=== PATIENT | female | born 1985 | race Caucasian/White ===

== ENCOUNTER 2016-08-08 16:27 | Emergency (ER) | payer OTHER ==
--- NOTE | 2016-08-08 17:52 | ED ORDER SUMMARY ---
..... Patient: JOVANY BRIONES OrderSheet [facility] VisitID: [id number] [place] [address] 31y, F Registration Date/Time: 08/08/2016 ORDER SHEET Weight: 81.6 kg (stated) Allergies: None GENERAL ORDERS: Wet Prep (Cervix) (c) Urgent (17:10 08/08/2016 Carrie Wilkerson) ([facility] 17:30 [facility]) (17:46 Caden Smalls) MEDICATION ORDERS: IV FLUIDS: ORDER SHEET NOTES: [Electronically signed by Virgen Escalante P.A.-C (18:27 08/08/2016)] [Electronically signed by Dottie Stout R.N. (19:33 08/08/2016)] [Electronically locked/signed by Dottie Stout R.N. (19:33 08/08/2016)]
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
--- NOTE | 2016-08-08 17:52 | ED CLINICAL REPORT ---
Clinical Report - Physicians/Mid Levels [facility] [address] [place] [address] 08/08/2016 16:30 Patient: JOVANY BRIONES Time Seen: 16:37 Aug 08 2016. Arrived- By private vehicle. Historian- patient. HISTORY OF PRESENT ILLNESS Chief Complaint: VAGINAL PAIN. This started just prior to arrival and still present. The symptoms are described as mild. The patient has had pelvic pain. (Patient is status post vaginal delivery on 01 July, and has been breast bending C Alvarado, prior to delivery she had a rash in her vagina, was being treated for such. Patient is breast-feeding. Denies any new nipple discharge or fevers.). REVIEW OF SYSTEMS No cough or chest pain. All systems otherwise negative, except as recorded above. PAST HISTORY Additional Surgeries: Dvt. Factor V Leiden. Medications: Aspirin Oral (Tablet 81 mg) 1 tablet, daily. Allergies: None. ADDITIONAL NOTES The nursing notes have been reviewed. PHYSICAL EXAM Vital Signs: 08/08/2016 16:43 BP: 105/56. HR: 78. RR: 17. O2 saturation: 99%. Temp: 97.8 F. Appearance: Alert. HEENT: Normal external inspection. ENT: Pharynx normal. Neck: Neck supple. CVS: Heart sounds normal. Respiratory: No respiratory distress. Breath sounds normal. Chest nontender. Abdomen: Soft and nontender. Bowel sounds normal. No mass. No abdominal tenderness. The bowel sounds are not abnormal. : Speculum and bimanual exam performed. External inspection normal. Speculum exam normal. Vaginal discharge present. No vaginal bleeding. No herpes-like lesions. Bimanual exam normal. (rash surrounding vagina with no elevation, pink, no warmth, chaperoned exam with RUBENS HUIZAR, Karyol.). LABS, X-RAYS, AND EKG Laboratory Tests: Wet Prep: (GABBIE: 08/08/2016 17:07) ( MsgRcvd 08/08/2016 17:35) Final results SPECIMEN DESCRIPTION: C Test Result Flag Units (Reference) WET MOUNT CLUE CELLS:: FEW * EPITHELIAL CELLS: MODERATE -- SOURCE?: CERVIX WHITE BLOOD CELLS: MODERATE TRICHOMONAS:: NONE -- YEAST:: NONE . PROGRESS AND PROCEDURES Course of Care: He was signs of vaginosis, we'll treat with topical, as she is breast-feeding, in addition we'll treat with 5 day course of triamcinolone, external, explicit instructions on use of such, then to DC and to follow up outpatient if her symptoms persist, external ear does not appear candidal in nature. There are no signs of herpes concerning lesions or warts. Patient stable. Afebrile. No urinary symptoms. Patient is stable. Symptoms better. Patient/family counseled. Disposition: Discharged. CLINICAL IMPRESSION Vaginitis Irritative contact dermatitis. INSTRUCTIONS Warnings: Further evaluation is necessary. Prescription Medications: Metronidazole 0.75% Vaginal Gel: insert 1 full applicator intra-vaginally for 5 days. Dispense seventy (70) grams. No refills. Triamcinolone 0.025% cream: apply to affected areas three times daily as needed for itching, until symptoms improve. Dispense thirty (30) grams. No refills. Metronidazole 500 mg: Take 1 tablet orally every 12 hours for 7 days. No refill. Follow-up: Follow up with your doctor in four days. (Electronically signed by Virgen Escalante P.A.-C 08/08/2016 18:27)
--- NOTE | 2016-08-08 17:52 | ED CLINICAL REPORT ---
Clinical Report - Physicians/Mid Levels [facility] [address] [place] [address] 08/08/2016 16:30 Patient: JOVANY BRIONES Time Seen: 16:37 Aug 08 2016. Arrived- By private vehicle. Historian- patient. HISTORY OF PRESENT ILLNESS Chief Complaint: VAGINAL PAIN. This started just prior to arrival and still present. The symptoms are described as mild. The patient has had pelvic pain. (Patient is status post vaginal delivery on 01 July, and has been breast bending C Alvarado, prior to delivery she had a rash in her vagina, was being treated for such. Patient is breast-feeding. Denies any new nipple discharge or fevers.). REVIEW OF SYSTEMS No cough or chest pain. All systems otherwise negative, except as recorded above. PAST HISTORY Additional Surgeries: Dvt. Factor V Leiden. Medications: Aspirin Oral (Tablet 81 mg) 1 tablet, daily. Allergies: None. ADDITIONAL NOTES The nursing notes have been reviewed. PHYSICAL EXAM Vital Signs: 08/08/2016 16:43 BP: 105/56. HR: 78. RR: 17. O2 saturation: 99%. Temp: 97.8 F. Appearance: Alert. HEENT: Normal external inspection. ENT: Pharynx normal. Neck: Neck supple. CVS: Heart sounds normal. Respiratory: No respiratory distress. Breath sounds normal. Chest nontender. Abdomen: Soft and nontender. Bowel sounds normal. No mass. No abdominal tenderness. The bowel sounds are not abnormal. : Speculum and bimanual exam performed. External inspection normal. Speculum exam normal. Vaginal discharge present. No vaginal bleeding. No herpes-like lesions. Bimanual exam normal. (rash surrounding vagina with no elevation, pink, no warmth, chaperoned exam with RUBENS HUIZAR, Karyol.). LABS, X-RAYS, AND EKG Laboratory Tests: Wet Prep: (GABBIE: 08/08/2016 17:07) ( MsgRcvd 08/08/2016 17:35) Final results SPECIMEN DESCRIPTION: C Test Result Flag Units (Reference) WET MOUNT CLUE CELLS:: FEW * EPITHELIAL CELLS: MODERATE -- SOURCE?: CERVIX WHITE BLOOD CELLS: MODERATE TRICHOMONAS:: NONE -- YEAST:: NONE . PROGRESS AND PROCEDURES Course of Care: He was signs of vaginosis, we'll treat with topical, as she is breast-feeding, in addition we'll treat with 5 day course of triamcinolone, external, explicit instructions on use of such, then to DC and to follow up outpatient if her symptoms persist, external ear does not appear candidal in nature. There are no signs of herpes concerning lesions or warts. Patient stable. Afebrile. No urinary symptoms. Patient is stable. Symptoms better. Patient/family counseled. Disposition: Discharged. CLINICAL IMPRESSION Vaginitis Irritative contact dermatitis. INSTRUCTIONS Warnings: Further evaluation is necessary. Prescription Medications: Metronidazole 0.75% Vaginal Gel: insert 1 full applicator intra-vaginally for 5 days. Dispense seventy (70) grams. No refills. Triamcinolone 0.025% cream: apply to affected areas three times daily as needed for itching, until symptoms improve. Dispense thirty (30) grams. No refills. Metronidazole 500 mg: Take 1 tablet orally every 12 hours for 7 days. No refill. Follow-up: Follow up with your doctor in four days. (Electronically signed by Virgen Escalante P.A.-C 08/08/2016 18:27)
--- NOTE | 2016-08-08 17:52 | ED ORDER SUMMARY ---
..... Patient: JOVANY BRIONES OrderSheet [facility] VisitID: [id number] [place] [address] 31y, F Registration Date/Time: 08/08/2016 ORDER SHEET Weight: 81.6 kg (stated) Allergies: None GENERAL ORDERS: Wet Prep (Cervix) (c) Urgent (17:10 08/08/2016 Carrie Wilkerson) [facility] (17:46 Caden Smalls) MEDICATION ORDERS: IV FLUIDS: ORDER SHEET NOTES: [Electronically signed by Virgen Escalante P.A.-C (18:27 08/08/2016)] [Electronically signed by Dottie Stout R.N. (19:33 08/08/2016)] [Electronically locked/signed by Dottie Stout R.N. (19:33 08/08/2016)]
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
--- NOTE | 2016-08-08 19:33 | ED MED RECONCILIATION SUMMARY ---
Patient: JOVANY BRIONES Medication Reconciliation Report [facility] VisitID: [id number] [place] [address] 31y, F Registration Date/Time: 08/08/2016 Weight: 81.6 kg Height/Length: 63 in. BMI: 31.9 ALLERGIES: None The patient's Home Medications are listed below: THE FOLLOWING MEDICATIONS NEED TO BE RECONCILED: Aspirin Oral (81 mg) 1 tablet, daily The source(s) of the original Home Medication information: Not obtained. The following Medications were given to the patient in the Emergency Department: None. The following Medications were prescribed to the patient: Metronidazole 0.75% Vaginal Gel: insert 1 full applicator intra-vaginally for 5 days. Dispense seventy (70) grams. No refills. -- Virgen Escalante, P.A.-C Triamcinolone 0.025% cream: apply to affected areas three times daily as needed for itching, until symptoms improve. Dispense thirty (30) grams. No refills. -- Virgen Escalante, P.A.-C Metronidazole 500 mg: Take 1 tablet orally every 12 hours for 7 days. No refill. -- Virgen Escalante, P.A.-C
--- NOTE | 2016-08-08 19:33 | ED MED RECONCILIATION SUMMARY ---
Patient: JOVANY BRIONES Medication Reconciliation Report [facility] VisitID: [id number] [place] [address] 31y, F Registration Date/Time: 08/08/2016 Weight: 81.6 kg Height/Length: 63 in. BMI: 31.9 ALLERGIES: None The patient's Home Medications are listed below: THE FOLLOWING MEDICATIONS NEED TO BE RECONCILED: Aspirin Oral (81 mg) 1 tablet, daily The source(s) of the original Home Medication information: Not obtained. The following Medications were given to the patient in the Emergency Department: None. The following Medications were prescribed to the patient: Metronidazole 0.75% Vaginal Gel: insert 1 full applicator intra-vaginally for 5 days. Dispense seventy (70) grams. No refills. -- Virgen Escalante, P.A.-C Triamcinolone 0.025% cream: apply to affected areas three times daily as needed for itching, until symptoms improve. Dispense thirty (30) grams. No refills. -- Virgen Escalante, P.A.-C Metronidazole 500 mg: Take 1 tablet orally every 12 hours for 7 days. No refill. -- Virgen Escalante, P.A.-C
--- NOTE | 2016-08-08 19:33 | ED DISCHARGE INSTRUCTIONS ---
Patient: JOVANY BRIONES General Instructions [facility] VisitID: [id number] [place] [address] 31y, F Registration Date/Time: 08/08/2016 Vaginitis Irritative contact dermatitis. INSTRUCTIONS Warnings: Further evaluation is necessary. Prescription Medications: Metronidazole 0.75% Vaginal Gel: insert 1 full applicator intra-vaginally for 5 days. Dispense seventy (70) grams. No refills. Triamcinolone 0.025% cream: apply to affected areas three times daily as needed for itching, until symptoms improve. Dispense thirty (30) grams. No refills. Metronidazole 500 mg: Take 1 tablet orally every 12 hours for 7 days. No refill. Follow-up: Follow up with your doctor in four days. ADDITIONAL INFORMATION Bacterial Vaginosis You have a bacterial infection of the vagina called bacterial vaginosis (BV). It may also be called gardnerella or non-specific vaginitis. BV occurs when the "bad" bacteria outnumber the "good" bacteria that are normally present in the vagina. Symptoms include foul-smelling vaginal discharge (most noticeable after vaginal intercourse). There may also be burning with urination. The burning is caused as the urine passes over the inflamed outer vaginal area. The cause of bacterial vaginosis is not certain. However, your risk is higher if you recently began a new sexual relationship, or have had many sex partners in the past. Your risk is also higher if you douche often. While bacterial vaginosis most often occurs only in sexually active women, this is not a true sexually transmitted disease. You did not get this from your partner. You cannot give it to your partner. The infection may be related to temporary changes in the pH of vaginal fluids after being exposed to semen. Home Care: Keep the genital area clean and free of discharge. Do this by wearing an absorbent sanitary pad and changing it often. Shower daily. When you shower, clean the outer vaginal area with plain soap and water. Do not douche during treatment unless advised to do so by your doctor. Routine douching after treatment is no longer recommended to clean the vagina. It raises your risk of vaginal infection and pelvic inflammatory disease. Avoid having sex until you have finished all antibiotic medicine and all symptoms have gone away. Wear cotton underwear or cotton-lined panty hose. Dont wear pants that are too tight. Limiting the number of sex partners you have lowers your risk of this and other vaginal infections, STDs, and HIV. Take all medicine as directed until it is gone, even if you are feeling better. If you dont do this, symptoms might return. Follow Up with your doctor if symptoms dont go away after the medicine is finished. Get Prompt Medical Attention if any of the following occur: Fever of 100.4F (38C) or higher, or as directed by your healthcare provider Lower abdominal pain Rash or joint pain Painful sores around the outer vaginal area or on your partners penis Dermatitis (Non-Specific) Dermatitis is an inflammation of the skin. The exact cause of your rash is not certain. However, this rash does not appear to be an infection or contagious illness. Taking care of the rash at home should help relieve your symptoms. Home Care: Keep the areas of rash clean by washing it daily. This also helps to keep the skin moist. Use a neutral pH soap such as Dove or Lever 2000. Apply a moisturizing lotion after bathing to prevent dry skin. Avoid skin irritants (wool or silk clothing, grease, oils, some medicines, harsh soaps, and detergents). Wear absorbent, soft fabrics next to the skin rather than rough or scratchy materials. Unless another medicine was prescribed, you may use Hydrocortisone cream (which you can get without a prescription) to reduce the inflammation. Follow Up: Make an appointment with your doctor in the next 1 to 2 weeks if your symptoms do not improve with the above measures. Get Prompt Medical Attention if any of the following occur: Increasing area of redness or pain in the skin Yellow crusts or drainage from the rash Joint pain New rash that appears in other areas of the body Fever of 100.4F (38C) or higher, or as directed by your healthcare provider Metronidazole Vaginal gel What is this medicine? METRONIDAZOLE (me troe NI da zole) VAGINAL GEL is an antiinfective. It is used to treat bacterial vaginitis. How should I use this medicine? This medicine is only for use in the vagina. Do not take by mouth or apply to other areas of the body. Follow the directions on the prescription label. Wash hands before and after use. Screw the applicator to the tube and squeeze the tube gently to fill the applicator. Lie on your back, part and bend your knees. Insert the applicator tip high in the vagina and push the plunger to release the gel into the vagina. Gently remove the applicator. Wash the applicator well with warm water and soap. Use at regular intervals. Finish the full course prescribed by your doctor or health customer care professional even if you think your condition is better. Do not stop using except on the advice of your doctor or health customer care professional. Talk to your customer account coordinator regarding the use of this medicine in children. Special care may be needed. What side effects may I notice from receiving this medicine? Side effects that you should report to your doctor or health customer care professional as soon as possible: dizziness frequent passing of urine headache loss of appetite nausea skin rash, itching stomach pain or cramps vaginal irritation or discharge vulvar burning or swelling Side effects that usually do not require medical attention (report to your doctor or health customer care professional if they continue or are bothersome): dark urine mild vaginal burning What may interact with this medicine? Do not take this medicine with any of the following medications: alcohol or any product that contains alcohol cisapride dofetilide dronedarone pimozide thioridazine ziprasidone This medicine may also interact with the following medications: cimetidine lithium other medicines that prolong the QT interval (cause an abnormal heart rhythm) warfarin What if I miss a dose? If you miss a dose, use it as soon as you can. If it is almost time for your next dose, use only that dose. Do not use double or extra doses. Where should I keep my medicine? Keep out of the reach of children. Store at room temperature between 15 and 30 degrees C (59 and 86 degrees F). Do not freeze. Throw away any unused medicine after the expiration date. What should I tell my health care provider before I take this medicine? They need to know if you have any of these conditions: if you drink alcohol containing drinks if you have taken disulfiram in the past two weeks liver disease peripheral neuropathy seizures an unusual or allergic reaction to metronidazole, parabens, nitroimidazoles, or other medicines, foods, dyes, or preservatives or trying to get breast-feeding What should I watch for while using this medicine? Tell your doctor or health customer care professional if your symptoms do not start to get better in 2 or 3 days. Avoid alcoholic drinks while you are taking this medicine and for three days afterwards. Alcohol may make you feel dizzy, sick, or flushed. You may get drowsy or dizzy. Do not drive, use machinery, or do anything that needs mental alertness until you know how this medicine affects you. To reduce the risk of dizzy or fainting spells, do not sit or stand up quickly, especially if you are an older patient. Your clothing may get soiled if you have a vaginal discharge. You can wear a sanitary napkin. Do not use tampons. Wear freshly washed cotton, not synthetic, panties. Do not have sex until you have finished your treatment. Having sex can make the treatment less effective. Your sexual partner may also need treatment. You have been given the following additional information: Vaginitis, Bacterial Dermatitis, Non-Specific Metronidazole Vaginal gel (Electronically signed by Virgen Escalante P.A.-C 08/08/2016 18:27)
--- NOTE | 2016-08-08 19:33 | ED MAR SUMMARY ---
..... Medication Administration Record [facility] [address] [place], [place] [id number] Patient: JOVANY BRIONES Visit ID: [id number] 31y, F Weight: 81.6 kg Height/Length: 63 in BMI: 31.9 ALLERGIES: None
--- NOTE | 2016-08-08 19:33 | ED DISCHARGE INSTRUCTIONS ---
Patient: JOVANY BRIONES General Instructions [facility] VisitID: [id number] [place] [address] 31y, F Registration Date/Time: 08/08/2016 Vaginitis Irritative contact dermatitis. INSTRUCTIONS Warnings: Further evaluation is necessary. Prescription Medications: Metronidazole 0.75% Vaginal Gel: insert 1 full applicator intra-vaginally for 5 days. Dispense seventy (70) grams. No refills. Triamcinolone 0.025% cream: apply to affected areas three times daily as needed for itching, until symptoms improve. Dispense thirty (30) grams. No refills. Metronidazole 500 mg: Take 1 tablet orally every 12 hours for 7 days. No refill. Follow-up: Follow up with your doctor in four days. ADDITIONAL INFORMATION Bacterial Vaginosis You have a bacterial infection of the vagina called bacterial vaginosis (BV). It may also be called gardnerella or non-specific vaginitis. BV occurs when the "bad" bacteria outnumber the "good" bacteria that are normally present in the vagina. Symptoms include foul-smelling vaginal discharge (most noticeable after vaginal intercourse). There may also be burning with urination. The burning is caused as the urine passes over the inflamed outer vaginal area. The cause of bacterial vaginosis is not certain. However, your risk is higher if you recently began a new sexual relationship, or have had many sex partners in the past. Your risk is also higher if you douche often. While bacterial vaginosis most often occurs only in sexually active women, this is not a true sexually transmitted disease. You did not get this from your partner. You cannot give it to your partner. The infection may be related to temporary changes in the pH of vaginal fluids after being exposed to semen. Home Care: Keep the genital area clean and free of discharge. Do this by wearing an absorbent sanitary pad and changing it often. Shower daily. When you shower, clean the outer vaginal area with plain soap and water. Do not douche during treatment unless advised to do so by your doctor. Routine douching after treatment is no longer recommended to clean the vagina. It raises your risk of vaginal infection and pelvic inflammatory disease. Avoid having sex until you have finished all antibiotic medicine and all symptoms have gone away. Wear cotton underwear or cotton-lined panty hose. Dont wear pants that are too tight. Limiting the number of sex partners you have lowers your risk of this and other vaginal infections, STDs, and HIV. Take all medicine as directed until it is gone, even if you are feeling better. If you dont do this, symptoms might return. Follow Up with your doctor if symptoms dont go away after the medicine is finished. Get Prompt Medical Attention if any of the following occur: Fever of 100.4F (38C) or higher, or as directed by your healthcare provider Lower abdominal pain Rash or joint pain Painful sores around the outer vaginal area or on your partners penis Dermatitis (Non-Specific) Dermatitis is an inflammation of the skin. The exact cause of your rash is not certain. However, this rash does not appear to be an infection or contagious illness. Taking care of the rash at home should help relieve your symptoms. Home Care: Keep the areas of rash clean by washing it daily. This also helps to keep the skin moist. Use a neutral pH soap such as Dove or Lever 2000. Apply a moisturizing lotion after bathing to prevent dry skin. Avoid skin irritants (wool or silk clothing, grease, oils, some medicines, harsh soaps, and detergents). Wear absorbent, soft fabrics next to the skin rather than rough or scratchy materials. Unless another medicine was prescribed, you may use Hydrocortisone cream (which you can get without a prescription) to reduce the inflammation. Follow Up: Make an appointment with your doctor in the next 1 to 2 weeks if your symptoms do not improve with the above measures. Get Prompt Medical Attention if any of the following occur: Increasing area of redness or pain in the skin Yellow crusts or drainage from the rash Joint pain New rash that appears in other areas of the body Fever of 100.4F (38C) or higher, or as directed by your healthcare provider Metronidazole Vaginal gel What is this medicine? METRONIDAZOLE (me troe NI da zole) VAGINAL GEL is an antiinfective. It is used to treat bacterial vaginitis. How should I use this medicine? This medicine is only for use in the vagina. Do not take by mouth or apply to other areas of the body. Follow the directions on the prescription label. Wash hands before and after use. Screw the applicator to the tube and squeeze the tube gently to fill the applicator. Lie on your back, part and bend your knees. Insert the applicator tip high in the vagina and push the plunger to release the gel into the vagina. Gently remove the applicator. Wash the applicator well with warm water and soap. Use at regular intervals. Finish the full course prescribed by your doctor or health adult caregiver even if you think your condition is better. Do not stop using except on the advice of your doctor or health adult caregiver. Talk to your residential case manager regarding the use of this medicine in children. Special care may be needed. What side effects may I notice from receiving this medicine? Side effects that you should report to your doctor or health adult caregiver as soon as possible: dizziness frequent passing of urine headache loss of appetite nausea skin rash, itching stomach pain or cramps vaginal irritation or discharge vulvar burning or swelling Side effects that usually do not require medical attention (report to your doctor or health adult caregiver if they continue or are bothersome): dark urine mild vaginal burning What may interact with this medicine? Do not take this medicine with any of the following medications: alcohol or any product that contains alcohol cisapride dofetilide dronedarone pimozide thioridazine ziprasidone This medicine may also interact with the following medications: cimetidine lithium other medicines that prolong the QT interval (cause an abnormal heart rhythm) warfarin What if I miss a dose? If you miss a dose, use it as soon as you can. If it is almost time for your next dose, use only that dose. Do not use double or extra doses. Where should I keep my medicine? Keep out of the reach of children. Store at room temperature between 15 and 30 degrees C (59 and 86 degrees F). Do not freeze. Throw away any unused medicine after the expiration date. What should I tell my health care provider before I take this medicine? They need to know if you have any of these conditions: if you drink alcohol containing drinks if you have taken disulfiram in the past two weeks liver disease peripheral neuropathy seizures an unusual or allergic reaction to metronidazole, parabens, nitroimidazoles, or other medicines, foods, dyes, or preservatives or trying to get breast-feeding What should I watch for while using this medicine? Tell your doctor or health adult caregiver if your symptoms do not start to get better in 2 or 3 days. Avoid alcoholic drinks while you are taking this medicine and for three days afterwards. Alcohol may make you feel dizzy, sick, or flushed. You may get drowsy or dizzy. Do not drive, use machinery, or do anything that needs mental alertness until you know how this medicine affects you. To reduce the risk of dizzy or fainting spells, do not sit or stand up quickly, especially if you are an older patient. Your clothing may get soiled if you have a vaginal discharge. You can wear a sanitary napkin. Do not use tampons. Wear freshly washed cotton, not synthetic, panties. Do not have sex until you have finished your treatment. Having sex can make the treatment less effective. Your sexual partner may also need treatment. You have been given the following additional information: Vaginitis, Bacterial Dermatitis, Non-Specific Metronidazole Vaginal gel (Electronically signed by Virgen Escalante P.A.-C 08/08/2016 18:27)
--- NOTE | 2016-08-08 19:33 | ED MAR SUMMARY ---
..... Medication Administration Record [facility] [address] [place], [place] [id number] Patient: JOVANY BRIONES Visit ID: [id number] 31y, F Weight: 81.6 kg Height/Length: 63 in BMI: 31.9 ALLERGIES: None
== END 2016-08-08 18:23 | disposition home or self-care (01) ==
LOC: ED SRH 16:27
DX: N76.0 Acute vaginitis (principal); L24.9 Irritant contact dermatitis, unspecified cause; Z79.82 Long term (current) use of aspirin; D68.51 Activated protein C resistance
CPT/HCPCS: 90195